=== PATIENT | female | born 1955 | race African-American/Black ===

== ENCOUNTER 2020-08-25 11:23 | Inpatient (IN) ==
[2020-08-25 13:35] LABS: Basophils % 0.3 % (0.0-0.8); Eosinophils # 0.1 10*3/uL (0.0-0.87); Eosinophils % 1.5 % (0.00-10.9); Hematocrit 37.2 VOL% (35.7-47.0); Hemoglobin 12.7 GM/DL (12.0-16.0); Immature Granulocytes % 0.8 %; Immature Granulocytes Absolute 0.08 #; Lymphocytes # 1.2 10*3/uL (1.4-4.0); Lymphocytes % 12.7 % (21.3-54.2); Mean Corpuscular HGB Conc 34.1 GM/DL (32-36); Mean Corpuscular Volume 95.1 FL (87-102); Mean Platelet Volume 9.6 FL (9.6-12.0); Monocytes % 7.5 % (1.7-12.7); Neutrophils % 77.2 % (38.7-73.9); Platelet Count 201 T/CUMM (130-400); Red Blood Count 3.91 MC/CUMM (3.8-5.5); Red Cell Distribution Width 15.9 % (9.3-17.3); White Blood Count 9.6 T/CUMM (4-12)
[2020-08-25 13:45] LABS: Bilirubin,Urine Moderate mg/dL (Negative); Blood, Urine Negative (Negative); Glucose,Urine (UA) Negative (Negative); Ketones,Urine Negative (Negative); Mucus,Urine Many /LPF (Occasional); Nitrite,Urine Negative (Negative); Protein,Urine 30 MG/DL; RBC,Urine 2 /HPF (0-4); Squamous Epithelial Cell,Urine Occasional /HPF (0-10); Urine Appearance CLEAR (Clear); Urine Color Amber (Yellow); Urine Specific Gravity 1.029 (1.001-1.035); WBC,Urine 2 /HPF (0-6)
[2020-08-25 14:08] LABS: Albumin 1.7 G/DL (3.4-5.0); Calcium 8.9 MG/DL (8.5-10.1); Osmolality,Calculated 280.5 MOS/KG (273-304); Potassium 2.8 MMOL/L (3.5-5.1); Total Protein 6.5 G/DL (6.4-8.3)
[2020-08-25 14:13] LABS: Bilirubin,Total 13.4 MG/DL (0.2-1.0)
[2020-08-25] MEDS ORDERED: SODIUM CHLORIDE 0.9% 1,000 ML IV STA (15:41)
[2020-08-25] MEDS ORDERED: cefTRIAXone 1,000 MG in SODIUM CHLORIDE 0.9% 100 ML IV STA (16:05)
[2020-08-25] MEDS ORDERED: POTASSIUM CHLORIDE 20 MEQ TABLET PO STA (16:05)
[2020-08-25] MEDS ORDERED: cefTRIAXone 1,000 MG VIAL ONE (16:07)
[2020-08-25] MEDS ORDERED: GLUCAGON 1 MG VIAL IM PRN (16:20)
[2020-08-25] MEDS ORDERED: DEXTROSE 50% 25 GM/50 ML VIAL IV PRN (16:20)
[2020-08-25] MEDS ORDERED: ALBUTEROL/IPRATROPIUM 3 ML NEB RESP TX PRN (16:41)
[2020-08-25] MEDS ORDERED: MORPHINE 4 MG/1 ML VIAL IV PRN (16:57)
[2020-08-25] MEDS: metroNIDAZOLE INJ 500 MG in PREMIX 1 EACH IV SCH ×2 (18:49→22:51)
[2020-08-25] MEDS: SODIUM CHLORIDE 0.9% 1,000 ML IV SCH (18:49)
[2020-08-26 04:45] LABS: Basophils % 0.3 % (0.0-0.8); Eosinophils # 0.2 10*3/uL (0.0-0.87); Eosinophils % 1.7 % (0.00-10.9); Hematocrit 36.8 VOL% (35.7-47.0); Hemoglobin 12.3 GM/DL (12.0-16.0); Immature Granulocytes % 1.4 %; Immature Granulocytes Absolute 0.15 #; Lymphocytes # 1.3 10*3/uL (1.4-4.0); Lymphocytes % 12.3 % (21.3-54.2); Mean Corpuscular HGB Conc 33.4 GM/DL (32-36); Mean Corpuscular Volume 96.1 FL (87-102); Mean Platelet Volume 9.6 FL (9.6-12.0); Monocytes % 8.1 % (1.7-12.7); Neutrophils % 76.2 % (38.7-73.9); Platelet Count 215 T/CUMM (130-400); Red Blood Count 3.83 MC/CUMM (3.8-5.5); Red Cell Distribution Width 16.1 % (9.3-17.3); White Blood Count 10.6 T/CUMM (4-12)
[2020-08-26] MEDS: metroNIDAZOLE INJ 500 MG in PREMIX 1 EACH IV SCH ×3 (04:55→17:59)
[2020-08-26 04:56] LABS: INR 1.2
[2020-08-26 05:10] LABS: Albumin 1.6 G/DL (3.4-5.0); Bilirubin,Total 11.4 MG/DL (0.2-1.0); Calcium 8.9 MG/DL (8.5-10.1); Osmolality,Calculated 277.5 MOS/KG (273-304); Potassium 3.2 MMOL/L (3.5-5.1); Total Protein 6.7 G/DL (6.4-8.3)
[2020-08-26] MEDS: PANTOPRAZOLE 40 MG TABLET PO SCH (09:27)
[2020-08-26] MEDS: POTASSIUM CHLORIDE 20 MEQ TABLET PO PRN ×2 (09:27→17:52)
[2020-08-26] MEDS: SODIUM CHLORIDE 0.9% 1,000 ML IV SCH (12:33)
[2020-08-26] MEDS: cefTRIAXone 1,000 MG in SYRINGE 1 EACH IV SCH (17:53)
[2020-08-26] MEDS: traMADol 50 MG TABLET PO PRN (17:53)
[2020-08-26] MEDS: LACTULOSE 20 GM/30 ML UDCUP PO SCH (22:42)
[2020-08-27] MEDS: metroNIDAZOLE INJ 500 MG in PREMIX 1 EACH IV SCH ×5 (00:48→22:43)
[2020-08-27] MEDS: SODIUM CHLORIDE 0.9% 1,000 ML IV SCH ×2 (05:43→21:40)
[2020-08-27 06:43] LABS: % Iron Saturation 16.7 % (18-50); Ferritin 356.8 ng/ml (8-252)
[2020-08-27 06:48] LABS: INR 1.2; PT Patient Result 13.2 SECS (9.8-11.9)
[2020-08-27 08:26] LABS: Hepatitis B Core IgM Quant 0.12 Index; Hepatitis B Surface Ag Quant < 0.10 Index; Hepatitis B Surface Ag Result Non-Reactive (NonReactive); Hepatitis C Virus Ab Quant 0.14 Index; Hepatitis C Virus Ab Result Non-Reactive (NonReactive)
[2020-08-27 10:12] LABS: Albumin 1.4 G/DL (3.4-5.0); Bilirubin,Total 10.4 MG/DL (0.2-1.0); Calcium 8.6 MG/DL (8.5-10.1); Potassium 4.4 MMOL/L (3.5-5.1); Total Protein 6.4 G/DL (6.4-8.3)
[2020-08-27] MEDS: LACTULOSE 20 GM/30 ML UDCUP PO SCH ×2 (10:12→21:02)
[2020-08-27] MEDS: PANTOPRAZOLE 40 MG TABLET PO SCH (10:13)
[2020-08-27] MEDS: cefTRIAXone 1,000 MG in SYRINGE 1 EACH IV SCH (17:22)
[2020-08-27] MEDS: traMADol 50 MG TABLET PO PRN ×2 (18:35→23:46)
[2020-08-28] MEDS: metroNIDAZOLE INJ 500 MG in PREMIX 1 EACH IV SCH ×4 (05:13→22:52)
[2020-08-28 06:17] LABS: Albumin 1.5 G/DL (3.4-5.0); Bilirubin,Total 11.5 MG/DL (0.2-1.0); Calcium 9.1 MG/DL (8.5-10.1); Potassium 3.3 MMOL/L (3.5-5.1); Total Protein 6.6 G/DL (6.4-8.3)
[2020-08-28] MEDS: POTASSIUM CHLORIDE 20 MEQ TABLET PO PRN ×3 (09:39→20:52)
[2020-08-28] MEDS: LACTULOSE 20 GM/30 ML UDCUP PO SCH ×2 (09:40→20:52)
[2020-08-28] MEDS: PANTOPRAZOLE 40 MG TABLET PO SCH (09:40)
[2020-08-28] MEDS ORDERED: MIDAZOLAM 2 MG/2 ML VIAL IV ONE (11:38)
[2020-08-28] MEDS ORDERED: fentaNYL 100 MCG/2 ML VIAL IV ONE (11:38)
[2020-08-28] MEDS ORDERED: DIAZEPAM 5 MG TABLET PO ONE (11:38)
[2020-08-28] MEDS ORDERED: ENOXAPARIN 120 MG/0.8 ML SYRINGE SUBCUT SCH (12:00)
[2020-08-28] MEDS ORDERED: SODIUM CHLORIDE 0.45% 1,000 ML IV SCH (12:00)
[2020-08-28] MEDS: traMADol 50 MG TABLET PO PRN (15:29)
[2020-08-28] MEDS: SODIUM CHLORIDE 0.9% 1,000 ML IV SCH ×2 (15:31→15:35)
[2020-08-28 15:35] LABS: Neutrophils,Peritoneal Fluid 35 %
[2020-08-28 15:37] LABS: RBC,Peritoneal Fluid 623 T/CUMM
[2020-08-28] MEDS: cefTRIAXone 1,000 MG in SYRINGE 1 EACH IV SCH (18:19)
[2020-08-29 04:58] LABS: Albumin 1.4 G/DL (3.4-5.0); Bilirubin,Total 11.8 MG/DL (0.2-1.0); Osmolality,Calculated 293.6 MOS/KG (273-304); Potassium 3.8 MMOL/L (3.5-5.1); Total Protein 6.5 G/DL (6.4-8.3)
[2020-08-29] MEDS: metroNIDAZOLE INJ 500 MG in PREMIX 1 EACH IV SCH ×3 (05:05→16:21)
[2020-08-29] MEDS: SODIUM CHLORIDE 0.9% 1,000 ML IV SCH (05:06)
[2020-08-29] MEDS: traMADol 50 MG TABLET PO PRN ×2 (08:21→13:27)
[2020-08-29] MEDS: LACTULOSE 20 GM/30 ML UDCUP PO SCH ×2 (08:21→21:05)
[2020-08-29] MEDS: PANTOPRAZOLE 40 MG TABLET PO SCH (08:23)
[2020-08-29] MEDS ORDERED: FUROSEMIDE 40 MG/4 ML VIAL IV ONE (12:15)
[2020-08-29] MEDS: cefTRIAXone 1,000 MG in SYRINGE 1 EACH IV SCH (16:21)
[2020-08-29] MEDS: RIFAXIMIN 550 MG TABLET PO SCH (21:05)
[2020-08-30] MEDS: metroNIDAZOLE INJ 500 MG in PREMIX 1 EACH IV SCH ×5 (00:11→23:52)
[2020-08-30] MEDS ORDERED: FUROSEMIDE 40 MG/4 ML VIAL IV ONE ×2 (07:43→09:56)
[2020-08-30] MEDS: RIFAXIMIN 550 MG TABLET PO SCH ×2 (08:36→21:44)
[2020-08-30] MEDS: PANTOPRAZOLE 40 MG TABLET PO SCH (08:36)
[2020-08-30] MEDS: traMADol 50 MG TABLET PO PRN (08:37)
[2020-08-30] MEDS: LACTULOSE 20 GM/30 ML UDCUP PO SCH ×2 (08:37→21:44)
[2020-08-30 08:57] LABS: Basophils # 0.1 10*3/uL (0.0-0.2); Basophils % 0.5 % (0.0-0.8); Eosinophils # 0.2 10*3/uL (0.0-0.87); Eosinophils % 1.6 % (0.00-10.9); Hematocrit 38.1 VOL% (35.7-47.0); Immature Granulocytes % 1.4 %; Immature Granulocytes Absolute 0.15 #; Lymphocytes # 1.2 10*3/uL (1.4-4.0); Mean Corpuscular HGB Conc 34.1 GM/DL (32-36); Mean Corpuscular Volume 97.2 FL (87-102); Mean Platelet Volume 9.8 FL (9.6-12.0); Monocytes % 8.5 % (1.7-12.7); Platelet Count 166 T/CUMM (130-400); Red Blood Count 3.92 MC/CUMM (3.8-5.5); Red Cell Distribution Width 16.1 % (9.3-17.3); White Blood Count 11.1 T/CUMM (4-12)
[2020-08-30 09:24] LABS: Albumin 1.4 G/DL (3.4-5.0); Bilirubin,Total 11.7 MG/DL (0.2-1.0); Calcium 9.2 MG/DL (8.5-10.1); Osmolality,Calculated 294.6 MOS/KG (273-304); Potassium 3.8 MMOL/L (3.5-5.1); Total Protein 6.4 G/DL (6.4-8.3)
[2020-08-30] MEDS: FUROSEMIDE 40 MG/4 ML VIAL IV SCH (15:27)
[2020-08-30] MEDS: cefTRIAXone 1,000 MG in SYRINGE 1 EACH IV SCH (16:45)
[2020-08-30] MEDS: ONDANSETRON 4 MG/2 ML VIAL IV PRN (18:52)
[2020-08-31] MEDS: metroNIDAZOLE INJ 500 MG in PREMIX 1 EACH IV SCH ×4 (04:46→23:35)
[2020-08-31 08:33] LABS: Albumin 1.4 G/DL (3.4-5.0); Calcium 9.2 MG/DL (8.5-10.1); Osmolality,Calculated 291.6 MOS/KG (273-304); Potassium 4.4 MMOL/L (3.5-5.1); Total Protein 6.2 G/DL (6.4-8.3)
[2020-08-31] MEDS: LACTULOSE 20 GM/30 ML UDCUP PO SCH ×2 (09:23→21:33)
[2020-08-31] MEDS: PANTOPRAZOLE 40 MG TABLET PO SCH (09:23)
[2020-08-31] MEDS: RIFAXIMIN 550 MG TABLET PO SCH ×2 (09:23→21:33)
[2020-08-31] MEDS: POTASSIUM CHLORIDE 20 MEQ TABLET PO PRN (09:23)
[2020-08-31] MEDS: FUROSEMIDE 40 MG/4 ML VIAL IV SCH ×2 (09:30→16:28)
[2020-08-31] MEDS: cefTRIAXone 1,000 MG in SYRINGE 1 EACH IV SCH (16:28)
[2020-09-01 07:18] LABS: Albumin 1.3 G/DL (3.4-5.0); Bilirubin,Total 11.8 MG/DL (0.2-1.0); Calcium 9.2 MG/DL (8.5-10.1); Potassium 3.4 MMOL/L (3.5-5.1); Total Protein 6.1 G/DL (6.4-8.3)
[2020-09-01] MEDS: PANTOPRAZOLE 40 MG TABLET PO SCH (09:11)
[2020-09-01] MEDS: RIFAXIMIN 550 MG TABLET PO SCH ×2 (09:11→21:20)
[2020-09-01] MEDS: LACTULOSE 20 GM/30 ML UDCUP PO SCH ×2 (09:11→21:20)
[2020-09-01] MEDS: POTASSIUM CHLORIDE 20 MEQ TABLET PO PRN ×3 (09:11→21:20)
[2020-09-01] MEDS: FUROSEMIDE 40 MG/4 ML VIAL IV SCH ×2 (09:28→17:38)
[2020-09-01] MEDS: metroNIDAZOLE INJ 500 MG in PREMIX 1 EACH IV SCH ×4 (10:06→23:40)
[2020-09-01] MEDS: ONDANSETRON 4 MG/2 ML VIAL IV PRN (13:47)
[2020-09-01] MEDS: cefTRIAXone 1,000 MG in SYRINGE 1 EACH IV SCH (17:38)
[2020-09-02] MEDS: POTASSIUM CHLORIDE 20 MEQ TABLET PO PRN ×2 (04:16→06:16)
[2020-09-02] MEDS: LACTULOSE 20 GM/30 ML UDCUP PO SCH ×2 (08:54→21:23)
[2020-09-02] MEDS: RIFAXIMIN 550 MG TABLET PO SCH ×2 (08:55→21:23)
[2020-09-02] MEDS: FUROSEMIDE 40 MG/4 ML VIAL IV SCH ×2 (08:55→16:31)
[2020-09-02] MEDS: PANTOPRAZOLE 40 MG TABLET PO SCH (08:55)
[2020-09-02 12:12] LABS: Albumin 1.3 G/DL (3.4-5.0); Bilirubin,Direct 9.37 MG/DL (0.0-0.20); Bilirubin,Indirect 2.9 MG/DL (0.0-1.0); Total Protein 6.3 G/DL (6.4-8.3)
[2020-09-02 12:35] LABS: Bilirubin,Total 12.3 MG/DL (0.2-1.0)
[2020-09-02] MEDS: cefTRIAXone 1,000 MG in SYRINGE 1 EACH IV SCH (16:34)
[2020-09-03] MEDS: traMADol 50 MG TABLET PO PRN (04:27)
[2020-09-03 06:50] LABS: Basophils # 0.1 10*3/uL (0.0-0.2); Basophils % 0.8 % (0.0-0.8); Eosinophils # 0.2 10*3/uL (0.0-0.87); Eosinophils % 1.1 % (0.00-10.9); Hematocrit 39.5 VOL% (35.7-47.0); Hemoglobin 13.3 GM/DL (12.0-16.0); Immature Granulocytes % 5.1 %; Immature Granulocytes Absolute 0.91 #; Lymphocytes # 2.4 10*3/uL (1.4-4.0); Lymphocytes % 13.7 % (21.3-54.2); Mean Corpuscular HGB Conc 33.7 GM/DL (32-36); Mean Corpuscular Volume 99.2 FL (87-102); Monocytes % 9.9 % (1.7-12.7); NRBC # 0.08 10*3/uL; Neutrophils % 69.4 % (38.7-73.9); Platelet Count 214 T/CUMM (130-400); Red Blood Count 3.98 MC/CUMM (3.8-5.5); Red Cell Distribution Width 16.7 % (9.3-17.3); White Blood Count 17.7 T/CUMM (4-12)
[2020-09-03 07:12] LABS: Albumin 1.4 G/DL (3.4-5.0); Calcium 9.8 MG/DL (8.5-10.1); Osmolality,Calculated 301.1 MOS/KG (273-304); Potassium 3.8 MMOL/L (3.5-5.1); Total Protein 6.5 G/DL (6.4-8.9)
[2020-09-03 07:13] LABS: Bilirubin,Indirect 2.8 MG/DL (0.0-1.0)
[2020-09-03 07:17] LABS: Bilirubin,Total 14.1 MG/DL (0.2-1.0)
[2020-09-03 07:27] LABS: Anisocytosis 1+; Band Neutrophils 8 % (0-10); Eosinophils 1 % (0-10); Lymphocytes 18 % (20-55); Macrocytosis 1+; Metamyelocytes 1 %; Myelocytes 1 %; Platelet Estimate Normal; Segmented Neutrophils 60 % (50-85); Total Cells Counted 100
[2020-09-03 07:28] LABS: Target Cells 2+
[2020-09-03] MEDS: FUROSEMIDE 40 MG/4 ML VIAL IV SCH ×2 (09:13→16:13)
[2020-09-03] MEDS: RIFAXIMIN 550 MG TABLET PO SCH ×2 (09:13→21:53)
[2020-09-03] MEDS: LACTULOSE 20 GM/30 ML UDCUP PO SCH ×2 (09:13→21:26)
[2020-09-03] MEDS: PANTOPRAZOLE 40 MG TABLET PO SCH (09:13)
[2020-09-04] MEDS ORDERED: DIAZEPAM 5 MG TABLET PO ONE (08:00)
[2020-09-04 08:48] LABS: Basophils # 0.1 10*3/uL (0.0-0.2); Basophils % 0.6 % (0.0-0.8); Eosinophils # 0.3 10*3/uL (0.0-0.87); Eosinophils % 1.7 % (0.00-10.9); Hematocrit 38.1 VOL% (35.7-47.0); Hemoglobin 12.4 GM/DL (12.0-16.0); Immature Granulocytes % 6.7 %; Immature Granulocytes Absolute 1.28 #; Lymphocytes # 2.9 10*3/uL (1.4-4.0); Mean Corpuscular HGB Conc 32.5 GM/DL (32-36); Monocytes % 8.5 % (1.7-12.7); NRBC # 0.17 10*3/uL; Neutrophils % 67.5 % (38.7-73.9); Platelet Count 181 T/CUMM (130-400); Red Blood Count 3.85 MC/CUMM (3.8-5.5); Red Cell Distribution Width 16.9 % (9.3-17.3); White Blood Count 19.2 T/CUMM (4-12)
[2020-09-04 08:58] LABS: INR 1.9; PT Patient Result 19.6 SECS (9.8-11.9)
[2020-09-04] MEDS ORDERED: fentaNYL 100 MCG/2 ML VIAL IV ONE (09:00)
[2020-09-04] MEDS ORDERED: MIDAZOLAM 2 MG/2 ML VIAL IV ONE (09:00)
[2020-09-04 09:09] LABS: Albumin 1.3 G/DL (3.4-5.0); Calcium 9.8 MG/DL (8.5-10.1); Osmolality,Calculated 301.1 MOS/KG (273-304); Potassium 3.8 MMOL/L (3.5-5.1)
[2020-09-04 09:27] LABS: Bilirubin,Total 12.9 MG/DL (0.2-1.0)
[2020-09-04 09:59] LABS: Band Neutrophils 1 % (0-10); Eosinophils 1 % (0-10); Hypochromasia 1+; Lymphocytes 18 % (20-55); Macrocytosis 1+; Metamyelocytes 1 %; Myelocytes 1 %; Nucleated Red Blood Cells 1 (0-5); Polychromasia Slight; Segmented Neutrophils 74 % (50-85); Target Cells Slight; Total Cells Counted 100
[2020-09-04 10:00] LABS: Anisocytosis 1+; Platelet Estimate Adequate
[2020-09-04] MEDS ORDERED: TUBERCULIN SKIN TEST 0.1 ML SYRINGE INTRADERM ONE (10:50)
[2020-09-04] MEDS: FUROSEMIDE 40 MG/4 ML VIAL IV SCH ×2 (11:57→17:48)
[2020-09-04] MEDS: RIFAXIMIN 550 MG TABLET PO SCH ×3 (11:57→21:46)
[2020-09-04] MEDS: SODIUM CHLORIDE 0.45% 1,000 ML IV SCH (13:20)
[2020-09-04] MEDS: LACTULOSE 20 GM/30 ML UDCUP PO SCH ×2 (13:49→21:46)
[2020-09-04] MEDS: PANTOPRAZOLE 40 MG TABLET PO SCH (13:50)
[2020-09-04] MEDS: MENTHOL/ZINC OXIDE OINT 71 GM JAR TOP SCH ×2 (13:50→21:46)
[2020-09-05] MEDS: LACTULOSE 20 GM/30 ML UDCUP PO SCH ×2 (08:29→20:43)
[2020-09-05] MEDS: MENTHOL/ZINC OXIDE OINT 71 GM JAR TOP SCH ×2 (08:29→20:48)
[2020-09-05] MEDS: PANTOPRAZOLE 40 MG TABLET PO SCH (08:29)
[2020-09-05] MEDS: FUROSEMIDE 40 MG/4 ML VIAL IV SCH ×2 (08:29→17:28)
[2020-09-05] MEDS: RIFAXIMIN 550 MG TABLET PO SCH ×2 (08:29→20:43)
[2020-09-05] MEDS: PIPERACILLIN/TAZOBACTAM 3,375 MG in SODIUM CHLORIDE 0.9% 100 ML IV SCH ×2 (14:16→21:10)
[2020-09-06] MEDS: PIPERACILLIN/TAZOBACTAM 3,375 MG in SODIUM CHLORIDE 0.9% 100 ML IV SCH ×3 (05:47→21:35)
[2020-09-06 05:56] LABS: Basophils # 0.1 10*3/uL (0.0-0.2); Basophils % 0.5 % (0.0-0.8); Eosinophils # 0.2 10*3/uL (0.0-0.87); Hematocrit 34.8 VOL% (35.7-47.0); Hemoglobin 11.8 GM/DL (12.0-16.0); Immature Granulocytes % 6.5 %; Immature Granulocytes Absolute 1.16 #; Lymphocytes # 2.1 10*3/uL (1.4-4.0); Lymphocytes % 11.8 % (21.3-54.2); Mean Corpuscular HGB Conc 33.9 GM/DL (32-36); Mean Corpuscular Volume 97.8 FL (87-102); Mean Platelet Volume 10.4 FL (9.6-12.0); Monocytes % 6.9 % (1.7-12.7); Neutrophils % 73.3 % (38.7-73.9); Platelet Count 168 T/CUMM (130-400); Red Blood Count 3.56 MC/CUMM (3.8-5.5); Red Cell Distribution Width 17.2 % (9.3-17.3); White Blood Count 17.7 T/CUMM (4-12)
[2020-09-06 06:15] LABS: Band Neutrophils 4 % (0-10); Eosinophils 1 % (0-10); Lymphocytes 6 % (20-55); Nucleated Red Blood Cells 1 (0-5); Platelet Estimate Adequate; Segmented Neutrophils 82 % (50-85); Total Cells Counted 100
[2020-09-06 06:16] LABS: Hypochromasia Slight; Macrocytosis Slight; Polychromasia Slight; Target Cells Slight
[2020-09-06 06:23] LABS: Albumin 1.2 G/DL (3.4-5.0); Bilirubin,Direct 10.25 MG/DL (0.0-0.20)
[2020-09-06] MEDS: SODIUM CHLORIDE 0.45% 1,000 ML IV SCH (08:48)
[2020-09-06] MEDS: LACTULOSE 20 GM/30 ML UDCUP PO SCH ×2 (10:22→20:39)
[2020-09-06] MEDS: PANTOPRAZOLE 40 MG TABLET PO SCH (10:22)
[2020-09-06] MEDS: MENTHOL/ZINC OXIDE OINT 71 GM JAR TOP SCH ×2 (10:29→20:39)
[2020-09-06] MEDS: FUROSEMIDE 40 MG/4 ML VIAL IV SCH ×2 (10:29→15:41)
[2020-09-06] MEDS: DILTIAZEM 30 MG TABLET PO SCH ×3 (13:34→20:39)
[2020-09-07] MEDS: PIPERACILLIN/TAZOBACTAM 3,375 MG in SODIUM CHLORIDE 0.9% 100 ML IV SCH ×2 (05:14→14:52)
[2020-09-07 05:41] LABS: Bilirubin,Indirect 3.1 MG/DL (0.0-1.0); Bilirubin,Total 13.3 MG/DL (0.2-1.0)
[2020-09-07] MEDS: SODIUM CHLORIDE 0.45% 1,000 ML IV SCH (08:11)
[2020-09-07 08:57] LABS: Basophils # 0.1 10*3/uL (0.0-0.2); Basophils % 0.5 % (0.0-0.8); Eosinophils # 0.1 10*3/uL (0.0-0.87); Eosinophils % 0.6 % (0.00-10.9); Hematocrit 36.4 VOL% (35.7-47.0); Hemoglobin 12.6 GM/DL (12.0-16.0); Immature Granulocytes % 6.1 %; Immature Granulocytes Absolute 1.18 #; Lymphocytes # 1.9 10*3/uL (1.4-4.0); Lymphocytes % 9.6 % (21.3-54.2); Mean Corpuscular HGB Conc 34.6 GM/DL (32-36); Mean Corpuscular Volume 96.6 FL (87-102); Mean Platelet Volume 10.3 FL (9.6-12.0); Monocytes % 6.5 % (1.7-12.7); Neutrophils % 76.7 % (38.7-73.9); Platelet Count 172 T/CUMM (130-400); Red Blood Count 3.77 MC/CUMM (3.8-5.5); Red Cell Distribution Width 17.9 % (9.3-17.3); White Blood Count 19.3 T/CUMM (4-12)
[2020-09-07 09:06] LABS: INR 2.2; PT Patient Result 22.4 SECS (9.8-11.9)
[2020-09-07] MEDS: DILTIAZEM 30 MG TABLET PO SCH ×4 (09:09→21:58)
[2020-09-07] MEDS: FUROSEMIDE 40 MG/4 ML VIAL IV SCH ×2 (09:10→16:11)
[2020-09-07] MEDS: LACTULOSE 20 GM/30 ML UDCUP PO SCH ×2 (09:10→21:54)
[2020-09-07] MEDS: PANTOPRAZOLE 40 MG TABLET PO SCH (09:10)
[2020-09-07 09:20] LABS: Albumin 1.2 G/DL (3.4-5.0); Calcium 9.6 MG/DL (8.5-10.1); Osmolality,Calculated 296.7 MOS/KG (273-304); Potassium 3.7 MMOL/L (3.5-5.1); Total Protein 6.7 G/DL (5.0-7.5)
[2020-09-07 09:22] LABS: Bilirubin,Total 14.6 MG/DL (0.2-1.0)
[2020-09-07 09:24] LABS: Band Neutrophils 2 % (0-10); Eosinophils 2 % (0-10); Hypochromasia 1+; Lymphocytes 5 % (20-55); Microcytosis 1+; Nucleated Red Blood Cells 1 (0-5); Platelet Estimate Adequate; Segmented Neutrophils 84 % (50-85); Total Cells Counted 100
[2020-09-07] MEDS: MENTHOL/ZINC OXIDE OINT 71 GM JAR TOP SCH ×2 (10:50→21:45)
[2020-09-07] MEDS: ONDANSETRON 4 MG/2 ML VIAL IV PRN (11:57)
[2020-09-07] MEDS ORDERED: SODIUM CHLORIDE 0.9% 250 ML IV ONE (18:00)
[2020-09-08] MEDS: PIPERACILLIN/TAZOBACTAM 3,375 MG in SODIUM CHLORIDE 0.9% 100 ML IV SCH ×4 (01:00→23:20)
[2020-09-08 08:40] LABS: Basophils # 0.1 10*3/uL (0.0-0.2); Basophils % 0.4 % (0.0-0.8); Eosinophils # 0.2 10*3/uL (0.0-0.87); Hematocrit 36.1 VOL% (35.7-47.0); Hemoglobin 12.1 GM/DL (12.0-16.0); Immature Granulocytes % 5.7 %; Immature Granulocytes Absolute 1.18 #; Lymphocytes # 1.8 10*3/uL (1.4-4.0); Lymphocytes % 8.7 % (21.3-54.2); Mean Corpuscular HGB Conc 33.5 GM/DL (32-36); Mean Corpuscular Volume 98.6 FL (87-102); Mean Platelet Volume 10.4 FL (9.6-12.0); Monocytes % 7.3 % (1.7-12.7); Neutrophils % 76.9 % (38.7-73.9); Platelet Count 181 T/CUMM (130-400); Red Blood Count 3.66 MC/CUMM (3.8-5.5); Red Cell Distribution Width 18.2 % (9.3-17.3); White Blood Count 20.5 T/CUMM (4-12)
[2020-09-08 08:49] LABS: INR 1.9; PT Patient Result 19.9 SECS (9.8-11.9)
[2020-09-08 08:58] LABS: Albumin 1.1 G/DL (3.4-5.0); Calcium 9.7 MG/DL (8.5-10.1); Osmolality,Calculated 295.8 MOS/KG (273-304); Potassium 3.6 MMOL/L (3.5-5.1); Total Protein 6.6 G/DL (5.0-7.5)
[2020-09-08 09:00] LABS: Bilirubin,Total 13.2 MG/DL (0.2-1.0); Hypochromasia Slight; Lymphocytes 4 % (20-55); Microcytosis 1+; Platelet Estimate Adequate; Segmented Neutrophils 91 % (50-85); Target Cells Slight; Total Cells Counted 100
[2020-09-08] MEDS: DILTIAZEM 30 MG TABLET PO SCH ×4 (09:28→23:16)
[2020-09-08] MEDS: FUROSEMIDE 40 MG/4 ML VIAL IV SCH (09:28)
[2020-09-08] MEDS: LACTULOSE 20 GM/30 ML UDCUP PO SCH ×2 (09:29→23:09)
[2020-09-08] MEDS: PANTOPRAZOLE 40 MG TABLET PO SCH (09:29)
[2020-09-08] MEDS: MENTHOL/ZINC OXIDE OINT 71 GM JAR TOP SCH ×2 (11:00→23:20)
[2020-09-08] MEDS: ONDANSETRON 4 MG/2 ML VIAL IV PRN (23:30)
[2020-09-09 05:18] LABS: Basophils # 0.1 10*3/uL (0.0-0.2); Basophils % 0.5 % (0.0-0.8); Eosinophils # 0.2 10*3/uL (0.0-0.87); Eosinophils % 0.8 % (0.00-10.9); Hematocrit 32.9 VOL% (35.7-47.0); Hemoglobin 11.3 GM/DL (12.0-16.0); Immature Granulocytes % 6.1 %; Lymphocytes # 1.8 10*3/uL (1.4-4.0); Lymphocytes % 8.6 % (21.3-54.2); Mean Corpuscular HGB Conc 34.3 GM/DL (32-36); Mean Corpuscular Volume 97.1 FL (87-102); Mean Platelet Volume 10.7 FL (9.6-12.0); Monocytes % 7.2 % (1.7-12.7); Neutrophils % 76.8 % (38.7-73.9); Platelet Count 174 T/CUMM (130-400); Red Blood Count 3.39 MC/CUMM (3.8-5.5); Red Cell Distribution Width 18.2 % (9.3-17.3); White Blood Count 21.2 T/CUMM (4-12)
[2020-09-09 05:27] LABS: INR 1.8; PT Patient Result 18.7 SECS (9.8-11.9)
[2020-09-09] MEDS: PIPERACILLIN/TAZOBACTAM 3,375 MG in SODIUM CHLORIDE 0.9% 100 ML IV SCH (05:30)
[2020-09-09 05:41] LABS: Band Neutrophils 2 % (0-10); Lymphocytes 8 % (20-55); Myelocytes 1 %; Nucleated Red Blood Cells 2 (0-5); Segmented Neutrophils 85 % (50-85); Total Cells Counted 100
[2020-09-09 05:42] LABS: Hypochromasia 1+; Microcytosis 1+; Polychromasia Slight; Target Cells Slight
[2020-09-09 05:43] LABS: Platelet Estimate Adequate
[2020-09-09 05:52] LABS: Albumin 1.1 G/DL (3.4-5.0); Calcium 9.7 MG/DL (8.5-10.1); Osmolality,Calculated 296.1 MOS/KG (273-304); Potassium 3.3 MMOL/L (3.5-5.1); Total Protein 6.4 G/DL (5.0-7.5)
[2020-09-09 05:57] LABS: Bilirubin,Total 13.6 MG/DL (0.2-1.0)
[2020-09-09] MEDS ORDERED: FUROSEMIDE 40 MG/4 ML VIAL IV SCH (09:00)
[2020-09-09] MEDS: LACTULOSE 20 GM/30 ML UDCUP PO SCH (09:42)
[2020-09-09] MEDS: PANTOPRAZOLE 40 MG TABLET PO SCH (09:42)
[2020-09-09] MEDS: DILTIAZEM 30 MG TABLET PO SCH (09:42)
[2020-09-09] MEDS: MENTHOL/ZINC OXIDE OINT 71 GM JAR TOP SCH (09:43)
[2020-09-09] MEDS: POTASSIUM CHLORIDE 20 MEQ TABLET PO PRN (09:45)
[2020-09-09] MEDS ORDERED: LACTULOSE 20 GM/30 ML UDCUP PO PRN (12:52)
[2020-09-09] MEDS ORDERED: MORPHINE 4 MG/1 ML VIAL IV PRN (12:54)
[2020-09-09 16:59] VITALS: BP 76/46
== END 2020-09-09 18:21 | disposition hospice, inpatient (51) | DRG 444 ==
LOC: EDBD → N.ED 11:23 → N.EDINP 16:20 → SUATTDRO 16:20 → N.TELEN 20:02
PROVIDERS: ADMIT Internal Medicine; ATTEND Internal Medicine

== ENCOUNTER 2020-09-09 18:36 | Inpatient (IN) ==
[2020-09-09] MEDS ORDERED: PROMETHAZINE INJ 25 MG in SODIUM CHLORIDE 0.9% 50 ML IV PRN (19:14)
[2020-09-09] MEDS: MORPHINE 4 MG/1 ML VIAL IV PRN (20:33)
[2020-09-10] MEDS: MORPHINE 4 MG/1 ML VIAL IV PRN ×3 (05:04→17:55)
[2020-09-11] MEDS: MORPHINE 4 MG/1 ML VIAL IV PRN ×2 (11:48→15:00)
[2020-09-11] MEDS: LORazepam 2 MG/1 ML VIAL IV PRN ×2 (13:00→17:43)
[2020-09-12] MEDS: MORPHINE 4 MG/1 ML VIAL IV PRN ×4 (06:30→20:25)
[2020-09-12] MEDS: LORazepam 2 MG/1 ML VIAL IV PRN ×2 (07:08→11:10)
[2020-09-12 20:55] VITALS: BP 0/0
== END 2020-09-12 22:12 | disposition expired | DRG 951 ==
LOC: N.TELEN 18:36
PROVIDERS: ADMIT Internal Medicine; ATTEND Internal Medicine